=== PATIENT | male | born 1970 | race Caucasian/White ===

== ENCOUNTER 2021-06-06 11:56 | Emergency (ER) | payer BC, OTHER ==
--- NOTE | 2021-06-06 12:25 | EDM.PDOC ---
ED HPI GENERAL MEDICAL PROBLEM - General Chief Complaint: General Stated Complaint: EVALUATION OF WOUND ON RIGHT KNEE Time Seen by Provider: 06/06/21 12:10 Source of Information: Reports: Patient History Limitations: Reports: No Limitations - History of Present Illness INITIAL COMMENTS - FREE TEXT/NARRATIVE: 50 YO WM PRESENTS TO ER WITH RIGHT KNEE DISCOMFORT. PT RATES HIS PAIN 2/10. PT REPORTS HE LEANED DOWN ON A SAND SPUR ABOUT 6 WEEKS AGO AND EVER SINCE HE HAS HAD A SMALL LUMP ON THE INTERIOR ASPECT OF THE RIGHT PATELLA. PT REPORTS HE WAS LEAN ON HIS KNEE THIS AM AND FELT A SMALL "POP" AND THE LUMP WENT AWAY BUT NOW HAS SOME MILD REDNESS TO THE AREA AND INCREASED DISCOMFORT AND SOME WARMTH WITHOUT ERYTHEMA OR SWELLING PROMPTING ER EVALUATION. PT DENIES FEVER/CHILLS, NO DECREASED RANGE OF MOTION, MINIMAL PAIN AT THIS TIME. Onset: Today Location: Reports: Lower Extremity, Right Quality: Reports: Ache Severity: Mild Improves with: Reports: None Worsens with: Reports: None Associated Symptoms: Reports: No Other Symptoms. Denies: Fever/Chills - Related Data Allergies Allergy/AdvReac Type Severity Reaction Status Date / Time codeine Allergy Itching Verified 06/06/21 12:11 Home Meds: Home Meds Amoxicillin/Potassium Clav [Augmentin 875-125 Tablet] 1 each PO BID #20 tablet 06/06/21 [Rx] Past Medical History HEENT History: Reports: None Cardiovascular History: Reports: None Respiratory History: Reports: None Gastrointestinal History: Reports: None Genitourinary History: Reports: None Musculoskeletal History: Reports: None Neurological History: Reports: None Psychiatric History: Reports: None Endocrine/Metabolic History: Reports: None Hematologic History: Reports: None Oncologic (Cancer) History: Reports: None Dermatologic History: Reports: None - Infectious Disease History Infectious Disease History: Reports: Chicken Pox - Past Surgical History HEENT Surgical History: Reports: None Social & Family History - Tobacco Use Tobacco Use Status *Q: Never Tobacco User - Caffeine Use Caffeine Use: Reports: Coffee - Recreational Drug Use Recreational Drug Use: No ED ROS GENERAL - Review of Systems Review Of Systems: See Below Constitutional: Reports: No Symptoms HEENT: Reports: No Symptoms Respiratory: Reports: No Symptoms Cardiovascular: Reports: No Symptoms Endocrine: Reports: No Symptoms GI/Abdominal: Reports: No Symptoms : Reports: No Symptoms Musculoskeletal: Reports: Joint Pain. Denies: Joint Swelling Skin: Reports: No Symptoms Neurological: Reports: No Symptoms Psychiatric: Reports: No Symptoms Hematologic/Lymphatic: Reports: No Symptoms Immunologic: Reports: No Symptoms ED EXAM, GENERAL - Physical Exam Exam: See Below Exam Limited By: No Limitations General Appearance: Alert, WD/WN, No Apparent Distress Head: Atraumatic, Normocephalic Neck: Normal Inspection, Supple, Non-Tender, Full Range of Motion Respiratory/Chest: No Respiratory Distress, Lungs Clear, Normal Breath Sounds, No Accessory Muscle Use, Chest Non-Tender Cardiovascular: Normal Peripheral Pulses, Regular Rate, Rhythm, No Edema, No Gallop, No JVD, No Murmur, No Rub GI/Abdominal: Normal Bowel Sounds, Soft, Non-Tender, No Organomegaly, No Dis tention, No Abnormal Bruit, No Mass Back Exam: Normal Inspection, Full Range of Motion, NT Extremities: Normal Range of Motion, No Pedal Edema, Normal Capillary Refill. No: Joint Swelling, Redness Neurological: Alert, Oriented, CN II-XII Intact, Normal Cognition, Normal Gait, No Motor/Sensory Deficits Psychiatric: Normal Affect, Normal Mood Skin Exam: Increased Warmth. No: Erythema Lymphatic: No Adenopathy Course - Vital Signs Last Recorded V/S: Last Vital Signs Temp 97.4 F 06/06/21 12:12 Pulse 74 06/06/21 12:12 Resp 16 06/06/21 12:12 BP 156/85 H 06/06/21 12:12 Pulse Ox 96 06/06/21 12:12 Departure - Departure Time of Disposition: 12:33 Disposition: Home, Self-Care 01 Condition: Good Clinical Impression: Infection of bursa Clinical Impression: (Ruled Out): Ketoacidosis in diabetes mellitus - Discharge Information Prescriptions: Amoxicillin/Potassium Clav [Augmentin 875-125 Tablet] 1 each PO BID #20 tablet Instructions: Bursitis, [id number] Referrals: Raquel Lepe MD [Primary Care Provider] - Additional Instructions: 1. DISCHARGE HOME 2. AUGMENTIN 875MG PO TWICE/DAY X 10DAYS 3. FOLLOW UP IN CLINIC NEEDED 4. RETURN TO ER FOR WORSENING SYMPTOMS Sepsis Event Note (ED) - Evaluation Sepsis Screening Result: No Definite Risk - Focused Exam Vital Signs: Vital Signs Temp Pulse Resp BP Pulse Ox 06/06/21 12:12 97.4 F 74 16 156/85 H 96 06/06/21 11:58 97.4 F 74 16 156/85 H 96 - Assessment/Plan Assessment:: 1. INFECTED BURSA Plan: 1. DISCHARGE HOME 2. AUGMENTIN 875MG PO TWICE/DAY X 10DAYS 3. FOLLOW UP IN CLINIC NEEDED 4. RETURN TO ER FOR WORSENING SYMPTOMS
== END 2021-06-06 12:36 | disposition home or self-care (01) ==
LOC: KA.ED 11:56
DX: M71.161 Other infective bursitis, right knee (principal); Z88.5 Allergy status to narcotic agent
CPT/HCPCS: 99283

== ENCOUNTER 2023-06-29 11:53 | Emergency (ER) | payer OTHER, BC ==
[2023-06-29] MEDS: Tetracaine HCl/PF 0.5% 4 ML Bottle EYERT ONE ×2 (12:26→12:44)
[2023-06-29] MEDS ORDERED: Sodium Chloride 0.9% 500 ML ONE (12:31)
[2023-06-29] MEDS ORDERED: Ciprofloxacin 0.3% Ophth Soln 5 ML Bottle EYERT SCH (13:00)
== END 2023-06-29 13:00 | disposition home or self-care (01) ==
LOC: KA.ED 11:53
DX: T15.91XA Foreign body on external eye, part unspecified, right eye, initial encounter (principal); Z88.5 Allergy status to narcotic agent
CPT/HCPCS: 99283; A9270; J7040; J3490